=== PATIENT | female | born 1995 | race African-American/Black ===

== ENCOUNTER 2018-01-26 06:17 | Day surgery (SDC) | payer OTHER ==
[2018-01-26] MEDS: SOD CHLORIDE 0.9% 1,000 ML IV (06:51)
[2018-01-26] MEDS ORDERED: PROPOFOL 200 MG INJ (07:00)
[2018-01-26 07:06] LABS: ADD MAN DIFF? NO
[2018-01-26 07:09] LABS: BASOPHILS % 0.3 % (0.0-2.0); EOSINOPHILS # 0.2 10^3/ul (0.0-0.5); EOSINOPHILS % 1.3 % (0.0-7.0); HEMATOCRIT 37.1 % (37.0-47.0); HEMOGLOBIN 12.2 g/dl (12.0-16.0); LYMPHOCYTES # 2.4 10^3/ul (0.8-2.9); LYMPHOCYTES % 20.3 % (15.0-51.0); MEAN CORPUSCULAR HEMOGLOBIN 28.7 pg (29.0-33.0); MEAN CORPUSCULAR HGB CONC 32.9 g/dl (32.0-37.0); MEAN CORPUSCULAR VOLUME 87.3 fl (82.0-101.0); MEAN PLATELET VOLUME 10.3 fl (7.4-10.4); MONOCYTE # 0.5 10^3/ul (0.3-0.9); MONOCYTES % 4.3 % (0.0-11.0); NEUTROPHIL # 8.8 10^3/ul (1.6-7.5); NEUTROPHILS % 73.5 % (39.0-77.0); PLATELET COUNT 253 10^3/UL (140-415); RED BLOOD COUNT 4.25 10^6/ul (4.20-5.40); RED CELL DISTRIBUTION WIDTH 13.4 % (11.5-14.5)
[2018-01-26] MEDS: METOCLOPRAMIDE 10 MG INJ IV (07:09)
[2018-01-26] MEDS: ACETAMINOPHEN 325 MG TAB PO (07:09)
[2018-01-26] MEDS: morphine 4 MG/ML VIAL IV (09:31)
[2018-01-26] MEDS: HYDROmorphONE 0.5 MG/0.5 ML SYG IV (10:30)
[2018-01-26] MEDS ORDERED: SUCCINYLCHOLINE CHLORIDE 100 MG/5 ML SYG IV (11:33)
[2018-01-26] MEDS ORDERED: MIDAZOLAM 1 MG/ML 2 ML INJ (11:33)
[2018-01-26] MEDS ORDERED: PROPOFOL 0 ML (11:33)
[2018-01-26] MEDS ORDERED: KETOROLAC 30 MG INJ (11:34)
[2018-01-26] MEDS ORDERED: METOCLOPRAMIDE 10 MG INJ (11:34)
[2018-01-26] MEDS ORDERED: ONDANSETRON 4 MG INJ (11:34)
[2018-01-26] MEDS ORDERED: CEFAZOLIN 1 GM INJ (11:48)
[2018-01-26] MEDS ORDERED: KETOROLAC 60 MG INJ IM (13:00)
[2018-01-26] MEDS ORDERED: HYDROmorphONE (0.2 MG/ML) 10ML SYG IV ×3 (13:00)
[2018-01-26] MEDS ORDERED: ONDANSETRON 4 MG INJ IV (13:00)
[2018-01-26] MEDS ORDERED: OXYCODONE/ACETAMINOPHEN (5/325) TAB PO ×2 (13:00)
[2018-01-26 13:25] LABS: ADD MAN DIFF? NO
[2018-01-26 13:27] LABS: WHITE BLOOD COUNT 20.2 10^3/ul (4.8-10.8)
[2018-01-26 13:27] LABS: BASOPHILS % 0.1 % (0.0-2.0); HEMATOCRIT 31.4 % (37.0-47.0); HEMOGLOBIN 10.1 g/dl (12.0-16.0); LYMPHOCYTES # 0.8 10^3/ul (0.8-2.9); LYMPHOCYTES % 4.1 % (15.0-51.0); MEAN CORPUSCULAR HEMOGLOBIN 28.5 pg (29.0-33.0); MEAN CORPUSCULAR HGB CONC 32.2 g/dl (32.0-37.0); MEAN CORPUSCULAR VOLUME 88.5 fl (82.0-101.0); MEAN PLATELET VOLUME 9.1 fl (7.4-10.4); MONOCYTE # 0.6 10^3/ul (0.3-0.9); MONOCYTES % 2.8 % (0.0-11.0); NEUTROPHIL # 18.7 10^3/ul (1.6-7.5); NEUTROPHILS % 92.5 % (39.0-77.0); PLATELET COUNT 266 10^3/UL (140-415); RED BLOOD COUNT 3.55 10^6/ul (4.20-5.40); RED CELL DISTRIBUTION WIDTH 13.3 % (11.5-14.5)
== END 2018-01-26 19:10 | disposition home or self-care (01) ==
LOC: FTE 06:17 → SUR 11:42 → SDS 11:42 → SUR 19:10
DX: O03.4 Incomplete spontaneous abortion without complication (principal)
CPT/HCPCS: 36415; 59812; 76801; 84702; 85025; 86900; 86901; 88305; 96374; 96375; 99285-25